=== PATIENT | female | born 1930 | race Caucasian/White ===

== ENCOUNTER 2017-10-01 08:51 | Inpatient (IN) | payer OTHER, MEDICARE ==
[~2017-10-01] VITALS: Ht 152.4 cm; Wt 94.2 kg
[~2017-10-01 08:51] MED LIST: ADVAIR HFA120 INHAL1 IH; ASPIR-LOW81 MG PO; ASPIRIN81 M1 PO; AUGMENTIN875 MG PO; CARTIA XT240 MG PO; CELEBREX200 MG PO; CENTRUM SILVER1 EAC3 PO; COREG6.25 M1 PO; Coumadin Protocol PO; Coumadin,Jantoven PO; DIOVAN HCT 31 TABLET PO; DUONEB 2.5-0.5 M3 ML IPPB; ELIQUIS5 MG PO; FAMOTIDINE20 MG PO; Feosol PO; Hyzaar 100-12.5 PO; LASIX40 MG PO; LIPITOR20 MG PO; LISINOPRIL-HCT1 EAC3 PO; LO-DOSE ASPIRIN81 M1; Lasix PO; MEVACOR40 MG PO; MIRALAX17 GM PO; Miralax, Glycolax PO; NORVASC5 MG PO; PRAVACHOL80 MG PO; PREDNISONE10 MG PO; Pravachol PO; SPIRIVA RESPIMAT4 GM IH; VESICARE5 MG PO; Vicodin,Norco 5/325 PO
[2017-10-01 09:55] LABS: PLATELET COUNT 175 K/uL (156-360)
[2017-10-01 10:01] LABS: MCH 32.1 PG (29.0-34.0); MCHC 31.6 G/DL (30.0-36.0); MCV 101.6 FL (83-99); RBC DIS.WIDTH-CV 14.7 % (11.8-14.6); RBC DIS.WIDTH-SD 54.4 % (39-53); RED BLOOD COUNT 3.74 M/uL (3.80-5.20)
[2017-10-01 10:06] LABS: ALBUMIN 3.9 g/dL (3.2-4.8)
[2017-10-01 10:07] LABS: CHLORIDE 100 mEq/L (99-109); POTASSIUM 4.7 mEq/L (3.7-5.4); SODIUM 140 mEq/L (136-147)
[2017-10-01 10:09] LABS: GLUCOSE 210 mg/dL (70-99)
[2017-10-01 10:11] LABS: TOTAL BILIRUBIN 2.7 mg/dL (0.0-1.0)
[2017-10-01 10:12] LABS: ALKALINE PHOSPHATASE 142 IU/L (3-129)
[2017-10-01 10:13] LABS: APPEARANCE CLEAR ((CLEAR)); BILIRUBIN NEGATIVE; BLOOD NEGATIVE; COLOR YELLOW ((YELLOW)); GLUCOSE (STRIP) NEGATIVE; KETONES NEGATIVE; LEUKOCYTES NEGATIVE; NITRITE NEGATIVE; PROTEIN (STRIP) NEGATIVE; SPECIFIC GRAVITY 1.006 (1.000-1.030); UCUL ADDED? NO; UROBILINOGEN 0.2 MG/DL (0.2-1.0)
[2017-10-01 10:13] LABS: CREATININE 1.1 mg/dL (0.6-1.3); GFR ESTIMATE (CALCULATED) 50 mL/min/
[2017-10-01 10:14] LABS: AST (GOT) 172 IU/L (2-34); UREA NITROGEN (BUN) 21 mg/dL (9-23)
[2017-10-01 10:16] LABS: ALT (GPT) 90 IU/L (3-49); LIPASE 33 U/L (1.0-51.0)
[2017-10-01 10:22] LABS: TROP-I INTERPRETATION NEGATIVE; TROPONIN-I 0.05 ng/mL (0.0-0.30)
[2017-10-01 12:33] LABS: PLATELET COUNT 149 K/uL (156-360)
[2017-10-01 12:37] LABS: HEMATOCRIT 34.1 % (36.0-46.0); HEMOGLOBIN 10.6 G/DL (11.9-15.5); MCH 31.5 PG (29.0-34.0); MCHC 31.1 G/DL (30.0-36.0); MCV 101.2 FL (83-99); RBC DIS.WIDTH-CV 14.6 % (11.8-14.6); RBC DIS.WIDTH-SD 54.2 % (39-53); RED BLOOD COUNT 3.37 M/uL (3.80-5.20)
[2017-10-01 12:39] LABS: WHITE BLOOD COUNT 43.9 K/uL (4.1-10.2)
[2017-10-01] MEDS ORDERED: DUONEB 2.5-0.5 M3 ML AEROSOL (12:51)
[2017-10-01] MEDS ORDERED: DIGOX125 MCG PO (12:52)
[2017-10-01] MEDS ORDERED: OMEPRAZOLE20 MG PO (12:55)
[2017-10-01 15:00] VITALS: BP 131/87
[2017-10-01 15:40] VITALS: BP 121/54
[2017-10-01 21:16] VITALS: BP 139/58
[2017-10-01 23:04] VITALS: BP 111/51
[2017-10-02 04:07] VITALS: BP 117/51
[2017-10-02 06:19] LABS: CHLORIDE 100 MEQ/L (99-109); GFR ESTIMATE (CALCULATED) 56 mL/min/; GLUCOSE 135 mg/dL (70-99); SODIUM 139 MEQ/L (136-147); UREA NITROGEN (BUN) 19 mg/dL (9-23)
[2017-10-02 06:22] LABS: POTASSIUM 3.5 MEQ/L (3.7-5.4)
[2017-10-02 08:18] LABS: ALKALINE PHOSPHATASE 100 IU/L (3-129); ALT (GPT) 82 IU/L (3-49); AST (GOT) 114 IU/L (2-34); DIRECT BILIRUBIN 2.6 mg/dL (0.0-0.3); TOTAL BILIRUBIN 3.9 MG/DL (0.0-1.0); TOTAL PROTEIN 4.5 G/DL (6.4-8.3)
[2017-10-02 11:29] VITALS: BP 102/47
[2017-10-02 15:19] VITALS: BP 105/55
[2017-10-02 19:18] VITALS: BP 140/63
[2017-10-02 22:27] VITALS: BP 140/61
[2017-10-03 03:35] VITALS: BP 129/60
[2017-10-03 06:38] LABS: HEMATOCRIT 30.3 % (36.0-46.0); HEMOGLOBIN 9.3 G/DL (11.9-15.5); MCH 31.4 PG (29.0-34.0); MCHC 30.7 G/DL (30.0-36.0); MCV 102.4 FL (83-99); PLATELET COUNT 139 K/uL (156-360); RBC DIS.WIDTH-SD 56.1 % (39-53); RED BLOOD COUNT 2.96 M/uL (3.80-5.20); WHITE BLOOD COUNT 29.6 K/uL (4.1-10.2)
[2017-10-03 06:59] LABS: ALBUMIN 2.9 G/DL (3.2-4.8); ALKALINE PHOSPHATASE 118 IU/L (3-129); ALT (GPT) 63 IU/L (3-49); AST (GOT) 68 IU/L (2-34); CHLORIDE 101 MEQ/L (99-109); CREATININE 0.9 MG/DL (0.6-1.3); GFR ESTIMATE (CALCULATED) > 59 mL/min/; GLUCOSE 126 mg/dL (70-99); POTASSIUM 3.6 MEQ/L (3.7-5.4); SODIUM 141 MEQ/L (136-147); TOTAL PROTEIN 4.6 G/DL (6.4-8.3); UREA NITROGEN (BUN) 18 mg/dL (9-23)
[2017-10-03 07:10] LABS: TOTAL BILIRUBIN 2.1 MG/DL (0.0-1.0)
[2017-10-03 07:52] VITALS: BP 123/58
[2017-10-03 08:01] LABS: ABS NEUTROPHIL COUNT 18.4; ANISOCYTOSIS 2+; BAND NEUTROPHILS 2.7 % (0-8.0); EOSINOPHIL ABS CT 0.4; EOSINOPHILS 1.3 % (0-5.0); MACROCYTES 1+; MICROCYTOSIS 1+; MONOCYTES 2.3 % (0-9.0); OVALOCYTES 1+; PLAT.SUFFICIENCY DECREASED; POIKILOCYTOSIS 1+; SEG.NEUTROPHILS 59.3 % (46.0-76.0)
[2017-10-03 11:05] VITALS: BP 117/57
[2017-10-03 12:15] VITALS: BP 117/57
[2017-10-03 16:19] VITALS: BP 126/58
[2017-10-03 19:19] VITALS: BP 125/66
[2017-10-04] VITALS: BP 170/66
[2017-10-04 07:00] LABS: HEMATOCRIT 31.7 % (36.0-46.0); HEMOGLOBIN 9.7 G/DL (11.9-15.5); MCH 31.3 PG (29.0-34.0); MCHC 30.6 G/DL (30.0-36.0); MCV 102.3 FL (83-99); PLATELET COUNT 168 K/uL (156-360); RBC DIS.WIDTH-CV 14.9 % (11.8-14.6); RBC DIS.WIDTH-SD 56.1 % (39-53); WHITE BLOOD COUNT 25.1 K/uL (4.1-10.2)
[2017-10-04 07:25] LABS: ALBUMIN 2.9 G/DL (3.2-4.8); ALKALINE PHOSPHATASE 116 IU/L (3-129); ALT (GPT) 51 IU/L (3-49); AST (GOT) 47 IU/L (2-34); CHLORIDE 101 MEQ/L (99-109); CREATININE 0.8 MG/DL (0.6-1.3); GFR ESTIMATE (CALCULATED) > 59 mL/min/; GLUCOSE 126 mg/dL (70-99); POTASSIUM 3.8 MEQ/L (3.7-5.4); SODIUM 143 MEQ/L (136-147); TOTAL PROTEIN 4.8 G/DL (6.4-8.3); UREA NITROGEN (BUN) 16 mg/dL (9-23)
[2017-10-04 07:29] LABS: TOTAL BILIRUBIN 1.5 MG/DL (0.0-1.0)
[2017-10-04 07:31] VITALS: BP 139/64
[2017-10-04 07:33] LABS: ABS NEUTROPHIL COUNT 16.9; EOSINOPHIL ABS CT 0.4; EOSINOPHILS 1.4 % (0-5.0); MONOCYTES 3.8 % (0-9.0); PLAT.SUFFICIENCY ADEQUATE; SEG.NEUTROPHILS 67.3 % (46.0-76.0); SMUDGE CELLS 151.7
[2017-10-04 11:20] VITALS: BP 122/57
[2017-10-04 16:10] LABS: BASE EXCESS 7.6 mEq/L (-3 to +3); BICARBONATE 35.7 mEq/L (22-26); COMMENTS - BLOOD GASES A+C+; CONTINUOUS POS AIRWAY PRESSURE 16 cm H2O; DEVICE CPAP; O2 FLOW 16 L/MIN; PCO2 71 mm Hg (35-45); PO2 69 mm Hg (80-100); SITE RR; TOTAL RESP RATE 19 resp/min; pH 7.31 (7.35-7.45)
[2017-10-04 17:38] LABS: BASE EXCESS 9.4 mEq/L (-3 to +3); BICARBONATE 36.7 mEq/L (22-26); CARBOXY HGB 1.6 % (0-5); COMMENTS - BLOOD GASES A+C+; METHEMOGLOBIN 0.9 % (0-1.5); PCO2 65 mm Hg (35-45); PO2 441 mm Hg (80-100); SITE RR; pH 7.36 (7.35-7.45)
[2017-10-04 17:39] LABS: DEVICE PB 840; FI02 100 %; MODE SPONT; PEEP 5 CM/H20; PRES. SUPPORT 14 CM/H2O; TOTAL RESP RATE 23 resp/min
[2017-10-04 20:30] VITALS: BP 169/66
[2017-10-04 22:00] VITALS: BP 101/54
[2017-10-04 23:00] VITALS: BP 147/78
[2017-10-05] VITALS (16 sets, daily range): BP systolic 99–160; BP diastolic 35–84
[2017-10-05 04:42] LABS: HEMATOCRIT 34.6 % (36.0-46.0); HEMOGLOBIN 10.5 G/DL (11.9-15.5); MCH 31.5 PG (29.0-34.0); MCHC 30.3 G/DL (30.0-36.0); MCV 103.9 FL (83-99); PLATELET COUNT 163 K/uL (156-360); RBC DIS.WIDTH-CV 14.7 % (11.8-14.6); RBC DIS.WIDTH-SD 55.8 % (39-53); RED BLOOD COUNT 3.33 M/uL (3.80-5.20); WHITE BLOOD COUNT 28.3 K/uL (4.1-10.2)
[2017-10-05 04:56] LABS: ALBUMIN 3.2 g/dL (3.2-4.8); CHLORIDE 101 mEq/L (99-109); SODIUM 142 mEq/L (136-147)
[2017-10-05 04:59] LABS: GLUCOSE 176 mg/dL (70-99)
[2017-10-05 05:02] LABS: ALKALINE PHOSPHATASE 167 IU/L (3-129); CREATININE 1.1 mg/dL (0.6-1.3); GFR ESTIMATE (CALCULATED) 50 mL/min/
[2017-10-05 05:03] LABS: UREA NITROGEN (BUN) 23 mg/dL (9-23)
[2017-10-05 05:05] LABS: ALT (GPT) 68 IU/L (3-49)
[2017-10-05 05:07] LABS: AST (GOT) 73 IU/L (2-34); POTASSIUM 4.6 mEq/L (3.7-5.4); TOTAL BILIRUBIN 1.6 mg/dL (0.0-1.0)
[2017-10-05 06:42] LABS: ABS NEUTROPHIL COUNT 18.8; ANISOCYTOSIS 1+; ATYPICAL LYMPHOCYTE 1.4 %; BAND NEUTROPHILS 0.9 % (0-8.0); EOSINOPHIL ABS CT 0; MACROCYTES 2+; MONOCYTES 1.4 % (0-9.0); NUCLEATED RBC'S 0.5; PLAT.SUFFICIENCY ADEQUATE; POIKILOCYTOSIS 1+; SEG.NEUTROPHILS 65.7 % (46.0-76.0); SMUDGE CELLS 136.1
[2017-10-06] VITALS: BP 127/76
[2017-10-06 04:00] VITALS: BP 120/62
[2017-10-06 05:03] LABS: PLATELET COUNT 178 K/uL (156-360)
[2017-10-06 05:08] LABS: HEMATOCRIT 31.5 % (36.0-46.0); HEMOGLOBIN 9.7 G/DL (11.9-15.5); MCH 31.8 PG (29.0-34.0); MCHC 30.8 G/DL (30.0-36.0); MCV 103.3 FL (83-99); RBC DIS.WIDTH-CV 14.8 % (11.8-14.6); RBC DIS.WIDTH-SD 55.5 % (39-53); RED BLOOD COUNT 3.05 M/uL (3.80-5.20)
[2017-10-06 05:22] LABS: ALBUMIN 3.1 g/dL (3.2-4.8)
[2017-10-06 05:23] LABS: CHLORIDE 100 mEq/L (99-109); POTASSIUM 4.3 mEq/L (3.7-5.4); SODIUM 139 mEq/L (136-147)
[2017-10-06 05:25] LABS: GLUCOSE 157 mg/dL (70-99); TOTAL PROTEIN 4.8 g/dL (6.4-8.3)
[2017-10-06 05:27] LABS: TOTAL BILIRUBIN 1.2 mg/dL (0.0-1.0)
[2017-10-06 05:28] LABS: ALKALINE PHOSPHATASE 140 IU/L (3-129)
[2017-10-06 05:29] LABS: CREATININE 1.4 mg/dL (0.6-1.3); GFR ESTIMATE (CALCULATED) 38 mL/min/
[2017-10-06 05:30] LABS: AST (GOT) 87 IU/L (2-34)
[2017-10-06 05:31] LABS: UREA NITROGEN (BUN) 38 mg/dL (9-23)
[2017-10-06 05:32] LABS: ALT (GPT) 70 IU/L (3-49)
[2017-10-06 05:36] LABS: WHITE BLOOD COUNT 35.2 K/uL (4.1-10.2)
[2017-10-06 06:38] LABS: ABS NEUTROPHIL COUNT 18.6; ANISOCYTOSIS 2+; BAND NEUTROPHILS 3.1 % (0-8.0); EOSINOPHIL ABS CT 0; MACROCYTES 2+; MICROCYTOSIS 1+; MONOCYTES 3.5 % (0-9.0); SEG.NEUTROPHILS 49.6 % (46.0-76.0); SMUDGE CELLS 59.3
[2017-10-06 09:32] VITALS: BP 121/47
[2017-10-06 16:03] VITALS: BP 122/64
[2017-10-06 20:04] VITALS: BP 123/58
[2017-10-06 23:44] VITALS: BP 107/62
[2017-10-07 04:06] VITALS: BP 108/54
[2017-10-07 05:51] LABS: HEMATOCRIT 35.1 % (36.0-46.0); HEMOGLOBIN 10.8 G/DL (11.9-15.5); MCHC 30.8 G/DL (30.0-36.0); MCV 104.2 FL (83-99); PLATELET COUNT 205 K/uL (156-360); RBC DIS.WIDTH-CV 15.3 % (11.8-14.6); RBC DIS.WIDTH-SD 58.4 % (39-53); RED BLOOD COUNT 3.37 M/uL (3.80-5.20)
[2017-10-07 05:52] LABS: WHITE BLOOD COUNT 35.7 K/uL (4.1-10.2)
[2017-10-07 05:55] LABS: INTER. NORMALIZED RATIO 1.1
[2017-10-07 05:57] LABS: PTT 28.9 SEC (25-37)
[2017-10-07 06:02] LABS: ALBUMIN 3.2 g/dL (3.2-4.8); CHLORIDE 101 mEq/L (99-109); POTASSIUM 4.5 mEq/L (3.7-5.4); SODIUM 137 mEq/L (136-147)
[2017-10-07 06:04] LABS: GLUCOSE 208 mg/dL (70-99)
[2017-10-07 06:05] LABS: TOTAL PROTEIN 5.3 g/dL (6.4-8.3)
[2017-10-07 06:08] LABS: ALKALINE PHOSPHATASE 131 IU/L (3-129); CREATININE 1.4 mg/dL (0.6-1.3); GFR ESTIMATE (CALCULATED) 38 mL/min/; PHOSPHORUS 4.1 mg/dL (2.5-4.9)
[2017-10-07 06:09] LABS: UREA NITROGEN (BUN) 40 mg/dL (9-23)
[2017-10-07 06:10] LABS: AST (GOT) 64 IU/L (2-34)
[2017-10-07 06:11] LABS: ALT (GPT) 63 IU/L (3-49)
[2017-10-07 06:12] LABS: TROP-I INTERPRETATION NEGATIVE; TROPONIN-I 0.07 ng/mL (0.0-0.30)
[2017-10-07 06:43] LABS: ABS NEUTROPHIL COUNT 19.3; ANISOCYTOSIS 1+; BAND NEUTROPHILS 1.3 % (0-8.0); EOSINOPHIL ABS CT 0.1; EOSINOPHILS 0.4 % (0-5.0); MACROCYTES 1+; MICROCYTOSIS 1+; MONOCYTES 7.1 % (0-9.0); PLAT.SUFFICIENCY ADEQUATE; POLYCHROMASIA 1+; SEG.NEUTROPHILS 52.7 % (46.0-76.0); SMUDGE CELLS 60.6
[2017-10-07 07:52] VITALS: BP 127/56
[2017-10-07 11:31] VITALS: BP 128/57
[2017-10-07 20:14] VITALS: BP 153/64
[2017-10-08 00:40] VITALS: BP 150/66
[2017-10-08 03:54] VITALS: BP 150/61
[2017-10-08 06:07] LABS: PLATELET COUNT 198 K/uL (156-360)
[2017-10-08 06:12] LABS: HEMATOCRIT 32.6 % (36.0-46.0); HEMOGLOBIN 9.9 G/DL (11.9-15.5); MCH 31.4 PG (29.0-34.0); MCHC 30.4 G/DL (30.0-36.0); MCV 103.5 FL (83-99); RBC DIS.WIDTH-CV 15.2 % (11.8-14.6); RBC DIS.WIDTH-SD 56.4 % (39-53); RED BLOOD COUNT 3.15 M/uL (3.80-5.20)
[2017-10-08 06:16] LABS: WHITE BLOOD COUNT 30.3 K/uL (4.1-10.2)
[2017-10-08 06:35] LABS: CHLORIDE 100 MEQ/L (99-109); CREATININE 1.1 MG/DL (0.6-1.3); GFR ESTIMATE (CALCULATED) 50 mL/min/; GLUCOSE 137 mg/dL (70-99); POTASSIUM 3.6 MEQ/L (3.7-5.4); UREA NITROGEN (BUN) 28 mg/dL (9-23)
[2017-10-08 06:38] LABS: SODIUM 145 MEQ/L (136-147)
[2017-10-08 06:43] LABS: ABS NEUTROPHIL COUNT 17.7; ANISOCYTOSIS 1+; BAND NEUTROPHILS 0.9 % (0-8.0); EOSINOPHIL ABS CT 0.1; EOSINOPHILS 0.4 % (0-5.0); LYMPHOCYTES 10.9 % (15.0-45.0); MACROCYTES 1+; MONOCYTES 4.5 % (0-9.0); SEG.NEUTROPHILS 57.5 % (46.0-76.0); SMUDGE CELLS 171.9
[2017-10-08 08:29] VITALS: BP 140/66
[2017-10-08 11:50] VITALS: BP 129/57
[2017-10-08 15:24] VITALS: BP 136/67
[2017-10-08 19:35] VITALS: BP 135/58
[2017-10-09 00:11] VITALS: BP 103/56
[2017-10-09 03:51] VITALS: BP 136/61
[2017-10-09 06:18] LABS: HEMATOCRIT 32.6 % (36.0-46.0); HEMOGLOBIN 9.8 G/DL (11.9-15.5); MCHC 30.1 G/DL (30.0-36.0); MCV 103.2 FL (83-99); PLATELET COUNT 216 K/uL (156-360); RBC DIS.WIDTH-CV 14.9 % (11.8-14.6); RBC DIS.WIDTH-SD 56.2 % (39-53); RED BLOOD COUNT 3.16 M/uL (3.80-5.20); WHITE BLOOD COUNT 28.1 K/uL (4.1-10.2)
[2017-10-09 06:28] LABS: CHLORIDE 99 MEQ/L (99-109); GFR ESTIMATE (CALCULATED) 56 mL/min/; GLUCOSE 164 mg/dL (70-99); SODIUM 144 MEQ/L (136-147); UREA NITROGEN (BUN) 17 mg/dL (9-23)
[2017-10-09 06:35] LABS: POTASSIUM 4.4 MEQ/L (3.7-5.4)
[2017-10-09 07:05] VITALS: BP 138/61
[2017-10-09 07:16] LABS: ABS NEUTROPHIL COUNT 13.9; ANISOCYTOSIS 2+; BASOPHILS 0.4 %; EOSINOPHIL ABS CT 0.5; EOSINOPHILS 1.8 % (0-5.0); LYMPHOCYTES 0.9 % (15.0-45.0); MICROCYTOSIS 1+; MONOCYTES 2.3 % (0-9.0); MYELOCYTES 0.5 %; PLAT.SUFFICIENCY ADEQUATE; POLYCHROMASIA 1+; SEG.NEUTROPHILS 49.5 % (46.0-76.0); SMUDGE CELLS 126.1
[2017-10-09 12:22] VITALS: BP 136/76
[2017-10-09] MEDS ORDERED: POTASSIUM CHLO20 ME2 PO (14:55)
[2017-10-09] MEDS ORDERED: ZOSYN 3.3753.375 GM IV (14:56)
[2017-10-09] MEDS ORDERED: DULERA 200 MCG/13 GM IH (14:57)
[2017-10-09] MEDS ORDERED: HEPARIN SO5000 UNIT4 SC (14:59)
[2017-10-09] MEDS ORDERED: SPIRIVA1 INHALATI IH (15:00)
[2017-10-09] MEDS ORDERED: PEPCID20 MG/50 M IV (15:03)
[2017-10-09] MEDS ORDERED: FENTANYL 050 MCG/1 M IV (15:06)
[2017-10-09] MEDS ORDERED: ZOFRAN4 MG IV (15:08)
[2017-10-09] MEDS ORDERED: TYLENOL EXTRA500 MG PO (15:10)
== END 2017-10-09 13:47 | DRG 853 ==
LOC: EME 08:51 → EDOF 11:52 → 5EAST 11:52 → 4WEST 11:52 → ENRESERV 11:58 → EDOF 12:25 → ENRESERV 12:33 → 5EAST 14:07 → ENRESERV 10-04 17:07 → 5EAST 10-04 17:08 → ENRESERV 10-04 18:20 → 4WEST 10-04 20:30 → ENRESERV 10-06 12:14 → 3EAST 10-06 15:47 → ENRESERV 10-08 10:18 → 5EAST 10-08 12:07
PROVIDERS: Family Medicine; Hospitalist; Physician Assistant; Surgery
PROC: 0FC98ZZ Extirpation of Matter from Common Bile Duct, Via Natural or Artificial Opening Endoscopic (ICD-10-PCS; principal; 2017-10-04)
PROC: 0FT44ZZ Resection of Gallbladder, Percutaneous Endoscopic Approach (ICD-10-PCS; 2017-10-05)
DX: A41.51 Sepsis due to Escherichia coli [E. coli] (principal); J96.21 Acute and chronic respiratory failure with hypoxia; I50.33 Acute on chronic diastolic (congestive) heart failure; K80.67 Calculus of gallbladder and bile duct with acute and chronic cholecystitis with obstruction; C91.10 Chronic lymphocytic leukemia of B-cell type not having achieved remission; R18.8 Other ascites; J98.11 Atelectasis; J90 Pleural effusion, not elsewhere classified; Z66 Do not resuscitate; I48.1 Persistent atrial fibrillation; Z68.41 Body mass index [BMI] 40.0-44.9, adult; E87.2 Acidosis; I48.2 Chronic atrial fibrillation; I11.0 Hypertensive heart disease with heart failure; I27.20 Pulmonary hypertension, unspecified; J44.9 Chronic obstructive pulmonary disease, unspecified; K21.9 Gastro-esophageal reflux disease without esophagitis; E66.9 Obesity, unspecified; E78.5 Hyperlipidemia, unspecified; K82.8 Other specified diseases of gallbladder; Z60.2 Problems related to living alone; D64.9 Anemia, unspecified; H26.9 Unspecified cataract; I25.10 Atherosclerotic heart disease of native coronary artery without angina pectoris; K66.0 Peritoneal adhesions (postprocedural) (postinfection); I34.0 Nonrheumatic mitral (valve) insufficiency; I37.1 Nonrheumatic pulmonary valve insufficiency; I35.1 Nonrheumatic aortic (valve) insufficiency; Z79.82 Long term (current) use of aspirin; Z87.891 Personal history of nicotine dependence; Z99.81 Dependence on supplemental oxygen; Z88.1 Allergy status to other antibiotic agents
CPT/HCPCS: 36600; 70450; 71046; 71250; 74176; 74177; 74328; 80048; 80053; 80076; 81003; 82803; 82948; 83605; 83690; 83735; 83880; 84100; 84484; 85025; 85027; 85610; 85730; 87040; 87077; 87081; 87186; 87641; 87801; 88304; 93005; 93306; 94002; 94010; 94640; 94640 76; 94760; 94799; 95819; 97530 GP; 99202; 99281; 99285; C1757; C1769; J0131; J0330; J0696; J1100; J1644; J1940; J2310; J2405; J2543; J2710; J2930; J3010; J3370; J7030; J7042; J7050; J7643; S0028

== ENCOUNTER 2017-10-09 13:41 | Inpatient (IN) | payer OTHER, MEDICARE ==
[~2017-10-09] VITALS: Ht 152.4 cm; Wt 88.5 kg
[~2017-10-09 13:41] MED LIST changes: +DIGOX125 MCG PO; +DUONEB 2.5-0.5 M3 ML AEROSOL; +OMEPRAZOLE20 MG PO
[2017-10-09 14:20] VITALS: BP 142/62
[2017-10-09] MEDS ORDERED: POTASSIUM CHLO20 ME2 PO (14:55)
[2017-10-09] MEDS ORDERED: ZOSYN 3.3753.375 GM IV (14:56)
[2017-10-09] MEDS ORDERED: DULERA 200 MCG/13 GM IH (14:57)
[2017-10-09] MEDS ORDERED: HEPARIN SO5000 UNIT4 SC (14:59)
[2017-10-09] MEDS ORDERED: SPIRIVA1 INHALATI IH (15:00)
[2017-10-09] MEDS ORDERED: PEPCID20 MG/50 M IV (15:03)
[2017-10-09] MEDS ORDERED: FENTANYL 050 MCG/1 M IV (15:06)
[2017-10-09] MEDS ORDERED: ZOFRAN4 MG IV (15:08)
[2017-10-09] MEDS ORDERED: TYLENOL EXTRA500 MG PO (15:10)
[2017-10-10 00:53] VITALS: BP 113/55
[2017-10-10 05:13] VITALS: BP 144/70
[2017-10-10 06:55] LABS: HEMATOCRIT 33.1 % (36.0-46.0); MCH 31.3 PG (29.0-34.0); MCHC 30.2 G/DL (30.0-36.0); MCV 103.4 FL (83-99); PLATELET COUNT 236 K/uL (156-360); RBC DIS.WIDTH-CV 15.1 % (11.8-14.6); RBC DIS.WIDTH-SD 56.7 % (39-53); WHITE BLOOD COUNT 29.3 K/uL (4.1-10.2)
[2017-10-10 07:20] LABS: ALBUMIN 3.1 G/DL (3.2-4.8); ALT (GPT) 29 IU/L (3-49); AST (GOT) 20 IU/L (2-34); CHLORIDE 99 MEQ/L (99-109); CREATININE 0.8 MG/DL (0.6-1.3); GFR ESTIMATE (CALCULATED) > 59 mL/min/; GLUCOSE 137 mg/dL (70-99); POTASSIUM 4.2 MEQ/L (3.7-5.4); SODIUM 143 MEQ/L (136-147); TOTAL BILIRUBIN 0.9 MG/DL (0.0-1.0); TOTAL PROTEIN 4.9 G/DL (6.4-8.3); UREA NITROGEN (BUN) 16 mg/dL (9-23)
[2017-10-10 07:21] LABS: ALKALINE PHOSPHATASE 80 IU/L (3-129)
[2017-10-10 15:02] VITALS: BP 144/65
[2017-10-11 04:24] VITALS: BP 130/56
[2017-10-11 15:37] VITALS: BP 128/59
[2017-10-12 05:56] VITALS: BP 148/63
[2017-10-12 15:57] VITALS: BP 113/55
[2017-10-13 04:30] VITALS: BP 135/65
[2017-10-13 05:48] LABS: CHLORIDE 98 MEQ/L (99-109); CREATININE 0.7 MG/DL (0.6-1.3); GFR ESTIMATE (CALCULATED) > 59 mL/min/; GLUCOSE 130 mg/dL (70-99); POTASSIUM 3.8 MEQ/L (3.7-5.4); SODIUM 141 MEQ/L (136-147); UREA NITROGEN (BUN) 18 mg/dL (9-23)
[2017-10-13 16:41] VITALS: BP 118/54; BP 135/60
[2017-10-14 05:28] VITALS: BP 161/70
[2017-10-14 15:09] VITALS: BP 121/60
[2017-10-15 06:02] VITALS: BP 130/58
[2017-10-15 15:32] VITALS: BP 118/77
[2017-10-16 05:38] VITALS: BP 170/64
[2017-10-16 16:37] VITALS: BP 122/57
[2017-10-17 05:46] VITALS: BP 118/53
[2017-10-17 06:19] LABS: CHLORIDE 102 MEQ/L (99-109); CREATININE 0.8 MG/DL (0.6-1.3); GFR ESTIMATE (CALCULATED) > 59 mL/min/; GLUCOSE 116 mg/dL (70-99); SODIUM 139 MEQ/L (136-147); UREA NITROGEN (BUN) 22 mg/dL (9-23)
[2017-10-17 16:00] VITALS: BP 122/60
[2017-10-18 05:34] VITALS: BP 130/61
[2017-10-18 15:42] VITALS: BP 101/56
[2017-10-19 04:40] VITALS: BP 131/55
[2017-10-19] MEDS ORDERED: PRAVASTATIN SOD80 MG PO (09:52)
[2017-10-19] MEDS ORDERED: DIGOXIN125 MCG PO (09:52)
[2017-10-19] MEDS ORDERED: LASIX40 MG PO (09:52)
[2017-10-19] MEDS ORDERED: COREG6.25 M1 PO (09:52)
[2017-10-19] MEDS ORDERED: ELIQUIS5 MG PO (09:52)
[2017-10-19] MEDS ORDERED: MUCINEX600 MG PO (09:52)
[2017-10-19] MEDS ORDERED: PREDNISONE10 MG PO (09:52)
== END 2017-10-19 14:35 | disposition home health service (06) | DRG 945 ==
LOC: 3WEST 13:41 → ENPENDDIS 10-19 → 3WEST 10-19 14:35
PROVIDERS: Family Medicine; Physical Medicine & Rehabilitation Pain Medicine
PROC: F07M0ZZ Range of Motion and Joint Mobility Treatment of Musculoskeletal System - Whole Body (ICD-10-PCS; principal; 2017-10-09)
DX: R53.1 Weakness (principal); A41.9 Sepsis, unspecified organism; D62 Acute posthemorrhagic anemia; E83.51 Hypocalcemia; I48.2 Chronic atrial fibrillation; E66.9 Obesity, unspecified; Z68.41 Body mass index [BMI] 40.0-44.9, adult; C91.10 Chronic lymphocytic leukemia of B-cell type not having achieved remission; E78.5 Hyperlipidemia, unspecified; Z96.652 Presence of left artificial knee joint; I27.20 Pulmonary hypertension, unspecified; M19.90 Unspecified osteoarthritis, unspecified site; B96.20 Unspecified Escherichia coli [E. coli] as the cause of diseases classified elsewhere; J44.0 Chronic obstructive pulmonary disease with (acute) lower respiratory infection; J44.1 Chronic obstructive pulmonary disease with (acute) exacerbation; J20.9 Acute bronchitis, unspecified; I50.32 Chronic diastolic (congestive) heart failure; I11.0 Hypertensive heart disease with heart failure; I25.10 Atherosclerotic heart disease of native coronary artery without angina pectoris; Z99.81 Dependence on supplemental oxygen; I08.3 Combined rheumatic disorders of mitral, aortic and tricuspid valves; K21.9 Gastro-esophageal reflux disease without esophagitis
CPT/HCPCS: 71045; 80048; 80053; 83880; 85027; 87070; 87205; 87493; 94640; 94640 76; 94760; 94799; 97110 GO; 97530 GP; J7512

== ENCOUNTER 2017-10-31 08:30 | Emergency (ER) | payer OTHER, MEDICARE ==
[~2017-10-31] VITALS: Ht 149.9 cm; Wt 85.8 kg
[~2017-10-31 08:30] MED LIST changes: +DIGOXIN125 MCG PO; +DULERA 200 MCG/13 GM IH; +FENTANYL 050 MCG/1 M IV; +HEPARIN SO5000 UNIT4 SC; +MUCINEX600 MG PO; +PEPCID20 MG/50 M IV; +POTASSIUM CHLO20 ME2 PO; +PRAVASTATIN SOD80 MG PO; +SPIRIVA1 INHALATI IH; +TYLENOL EXTRA500 MG PO; +ZOFRAN4 MG IV; +ZOSYN 3.3753.375 GM IV
[2017-10-31] MEDS ORDERED: ZITHROMAX250 MG PO ×2 (09:06→13:03)
[2017-10-31 09:23] LABS: HEMATOCRIT 33.8 % (36.0-46.0); HEMOGLOBIN 10.7 G/DL (11.9-15.5); MCH 31.8 PG (29.0-34.0); MCHC 31.7 G/DL (30.0-36.0); MCV 100.6 FL (83-99); RBC DIS.WIDTH-CV 15.5 % (11.8-14.6); RBC DIS.WIDTH-SD 56.8 % (39-53); RED BLOOD COUNT 3.36 M/uL (3.80-5.20); WHITE BLOOD COUNT 27.1 K/uL (4.1-10.2)
[2017-10-31 09:37] LABS: ALBUMIN 3.5 g/dL (3.2-4.8); CHLORIDE 102 mEq/L (99-109); POTASSIUM 4.2 mEq/L (3.7-5.4); SODIUM 140 mEq/L (136-147)
[2017-10-31 09:40] LABS: GLUCOSE 122 mg/dL (70-99); TOTAL PROTEIN 5.3 g/dL (6.4-8.3)
[2017-10-31 09:42] LABS: TOTAL BILIRUBIN 0.9 mg/dL (0.0-1.0)
[2017-10-31 09:42] LABS: TROP-I INTERPRETATION NEGATIVE; TROPONIN-I 0.03 ng/mL (0.0-0.30)
[2017-10-31 09:43] LABS: ALKALINE PHOSPHATASE 103 IU/L (3-129); CREATININE 0.7 mg/dL (0.6-1.3); GFR ESTIMATE (CALCULATED) > 59 mL/min/
[2017-10-31 09:44] LABS: UREA NITROGEN (BUN) 15 mg/dL (9-23)
[2017-10-31 09:45] LABS: AST (GOT) 28 IU/L (2-34)
[2017-10-31 09:46] LABS: ALT (GPT) 21 IU/L (3-49)
[2017-10-31 10:00] LABS: PLAT.SUFFICIENCY ADEQUATE; PLATELET CLUMPS PRESENT - PLATELET COUNT APPEARS ADQ.; PLATELET COUNT UNABLE TO REPORT K/uL (156-360)
[2017-10-31 13:30] VITALS: BP 128/75
== END 2017-10-31 13:30 | disposition home or self-care (01) ==
LOC: EME 08:30
PROVIDERS: Emergency Medicine Emergency Medical Services
DX: J44.1 Chronic obstructive pulmonary disease with (acute) exacerbation (principal); J18.9 Pneumonia, unspecified organism; J44.0 Chronic obstructive pulmonary disease with (acute) lower respiratory infection; R09.02 Hypoxemia; R06.03 Acute respiratory distress; Z99.81 Dependence on supplemental oxygen; E78.5 Hyperlipidemia, unspecified; I10 Essential (primary) hypertension; Z86.73 Personal history of transient ischemic attack (TIA), and cerebral infarction without residual deficits; Z85.6 Personal history of leukemia; Z87.891 Personal history of nicotine dependence
CPT/HCPCS: 71045; 80053; 83880; 84484; 85027; 93005; 94640; 94644; 99281; 99285; J0456; J2930; J3475; J7040